=== PATIENT | male | born 1950 | race Caucasian/White ===

== ENCOUNTER 2019-02-11 17:01 | Emergency (ER) | payer OTHER ==
[~2019-02-11] VITALS: Ht 172.7 cm; Wt 109.5 kg
[2019-02-11 17:53] VITALS: BP 142/80; TEMP 97.3
[2019-02-11] MEDS ORDERED: ULTRAM 50MG TAB50 MG PO (21:34)
[2019-02-11 22:05] VITALS: PULSE 62
== END 2019-02-11 22:05 | disposition home or self-care (01) ==
LOC: COL.ER 17:01
DX: S83.91XA Sprain of unspecified site of right knee, initial encounter (principal); I10 Essential (primary) hypertension; X50.1XXA Overexertion from prolonged static or awkward postures, initial encounter
CPT/HCPCS: J1885; L1846

== ENCOUNTER 2020-05-12 05:53 | Inpatient (IN) | payer OTHER, MEDICARE ==
[~2020-05-12] VITALS: Ht 172.7 cm; Wt 109.6 kg
[~2020-05-12 05:53] MED LIST: ULTRAM 50MG TAB50 MG PO
[2020-05-12 06:41] LABS: BASO % 0.5 % (0.0-2.0); EOS % 0.1 % (0-4.0); HEMATOCRIT 47.1 % (42.0-52.0); HEMOGLOBIN 15.4 g/dl (13.5-18.0); LYMPH # 1.6 (1.2-3.4); LYMPH % 17.9 % (20.0-51.0); MEAN CELL VOLUME 90 fl (80.0-100.0); MEAN CORPUSCULAR HEMOGLOBIN 29 pg (27.0-31.0); MEAN CORPUSCULAR HGB CONC 33 g/dl (33.0-37.0); MEAN PLATELET VOLUME 11.4 fl (7.4-10.4); MONO # 1.2 (0.1-0.6); PLATELET COUNT 159 K/mm3 (130-400); RED BLOOD COUNT 5.23 M/mm3 (4.20-5.60)
[2020-05-12] MEDS ORDERED: PREDNISONE20 MG PO (06:41)
[2020-05-12] MEDS ORDERED: ZITHROMAX 250M250 MG PO (06:42)
[2020-05-12] MEDS ORDERED: LIPITOR20 MG PO (06:43)
[2020-05-12] MEDS ORDERED: PROVENTIL0.09 MG/A1 IH (06:43)
[2020-05-12] MEDS ORDERED: TOPROL XL100 MG PO (06:44)
[2020-05-12] MEDS ORDERED: FLOMAX 0.40.4 MG/CAP PO (06:45)
[2020-05-12] MEDS ORDERED: LASIX 20MG TABL20 MG PO (06:45)
[2020-05-12] MEDS ORDERED: PROTONIX 40MG T40 MG PO (06:45)
[2020-05-12 06:53] LABS: ALANINE AMINOTRANSFERASE 14 U/L (4-49); ALBUMIN 3.6 gm/dL (3.5-5.0); ALKALINE PHOSPHATASE 55 U/L (50-136); ANION GAP 5 mmol/L (7-16); AST,SGOT 23 U/L (15-37); BILIRUBIN,TOTAL 0.8 mg/dL (0.0-1.0); BLOOD UREA NITROGEN 20 mg/dL (9-20); C-REACTIVE PROTEIN 3.9 mg/dL (0.0-0.9); CALCIUM 8.6 mg/dL (8.4-10.2); CARBON DIOXIDE 29 mmol/L (22-30); CHLORIDE 101 mmol/L (98-107); CREATININE, serum 0.85 (0.66-1.25); GLUCOSE 98 mg/dL (74-106); LIPASE 76 U/L (23-300); POTASSIUM 3.7 mmol/L (3.4-5.0); SODIUM 135 mmol/L (137-145); TOTAL PROTEIN 6.5 gm/dL (6.4-8.2)
[2020-05-12 06:56] LABS: COLLECTION METHOD CLEAN CATCH
[2020-05-12 07:01] LABS: INR 1.1 (0.8-3.0); PROTHROMBIN TIME 12.2 SECONDS (9.7-12.8)
[2020-05-12 07:01] LABS: MUCOUS Present /lpf; PH 5 (5-8); SQUAMOUS EPITHELIAL 0-2 /hpf; URINE APPEARANCE Clear; URINE BACTERIA None Seen /hpf; URINE BILIRUBIN Negative (NEGATIVE); URINE BLOOD 1+ (NEGATIVE); URINE COLOR Yellow; URINE GLUCOSE Negative (NEGATIVE); URINE KETONE Negative (NEGATIVE); URINE LEUKOCYTE ESTERASE Negative (NEGATIVE); URINE NITRATE Negative (NEGATIVE); URINE PROTEIN(semi-quant) 1+ (NEGATIVE); URINE RBC 0-2 /hpf; URINE UROBILINOGEN >=4.0 mg/dL (NEGATIVE)
[2020-05-12 07:03] LABS: PARTIAL THROMBOPLASTIN TIME 25.4 SECONDS (26.0-37.0); TROPONIN-I < 0.012 ng/mL (0.000-0.035)
[2020-05-12 07:23] LABS: ARTERIAL BLD GAS O2 SATURATION 96.2 % (92-100); ARTERIAL BLD GAS TCO2 CT 29.9; ARTERIAL BLOOD GAS BASE EXCESS 4.9 (-2-2); ARTERIAL BLOOD GAS HCO3 28.7 meq/L (22-26); ARTERIAL BLOOD GAS PCO2 39.4 mmHg (35-45); ARTERIAL BLOOD GAS PO2 75.4 mmHg (80-100); ARTERIAL BLOOD GAS pH 7.48 (7.35-7.45)
[2020-05-12 10:12] VITALS: BP 107/62; PULSE 53; TEMP 98.4
[2020-05-12] MEDS ORDERED: B-121000 MCG PO (10:35)
[2020-05-12] MEDS ORDERED: ASPIRIN 32325 MG/TAB PO (10:36)
--- NOTE | 2020-05-12 10:54 | NUR ---
PATIENT REPORTS HE IS FEELING WELL NOW WITH THE OXYGEN. HE IS TALKATIVE BUT DOES GET TO COUGHING WITH THIS. DENIES PAIN. NO SOB WHILE AT REST
[2020-05-12 12:45] VITALS: BP 106/61; PULSE 57; TEMP 98
[2020-05-12 16:09] VITALS: BP 115/63; PULSE 58; TEMP 98.3
--- NOTE | 2020-05-12 16:19 | NUR ---
PATIENT HAS A NONPRODUCTIVE COUGH THIS HAS WORSENED SINCE BREATHING TREATMENT. PRN COUGH MEDICATIONS GIVEN
[2020-05-12 20:04] VITALS: BP 132/65; PULSE 109; TEMP 98
[2020-05-12 23:59] VITALS: BP 121/55; PULSE 61; TEMP 97.5
[2020-05-13 04:24] VITALS: BP 122/54; PULSE 61; TEMP 98.7
[2020-05-13 06:21] LABS: BASO % 0.1 % (0.0-2.0); EOS % 0.1 % (0-4.0); GRAN # 5.3 (1.4-6.5); GRAN % 63.5 % (42.2-75.2); HEMATOCRIT 43.5 % (42.0-52.0); HEMOGLOBIN 14.1 g/dl (13.5-18.0); LYMPH % 24.5 % (20.0-51.0); MEAN CELL VOLUME 90 fl (80.0-100.0); MEAN CORPUSCULAR HEMOGLOBIN 29 pg (27.0-31.0); MEAN CORPUSCULAR HGB CONC 32 g/dl (33.0-37.0); MEAN PLATELET VOLUME 11.3 fl (7.4-10.4); MONO % 11.6 % (1.7-9.3); PLATELET COUNT 150 K/mm3 (130-400); RED BLOOD COUNT 4.85 M/mm3 (4.20-5.60)
[2020-05-13 06:31] LABS: CALCIUM 8.3 mg/dL (8.4-10.2); CREATININE, serum 0.79 (0.66-1.25); POTASSIUM 3.6 mmol/L (3.4-5.0)
[2020-05-13 09:18] VITALS: BP 143/78; PULSE 68; TEMP 98.2
--- NOTE | 2020-05-13 09:20 | NUR ---
Pt awake and alert sitting in the recliner upon entry. No C/O pain at this time. Shift assessments complete, left Pt sitting in the recliner, call light in reach.
--- NOTE | 2020-05-13 09:52 | NUR ---
The patient is positive for COVID. SW contacted the patient's room phone to discuss discharge plan. The patient lives in [place] with his , Susan (ph#[phone]). He reports independence with ADLs and does not have any DME. He states that he has an old oxygen concentrator in storage that he got from [place], but does not use anymore. The patient's PCP is Dr. Germán Thompson and he receives his medications from [facility]. He reports no difficulties obtaining his meds. The patient does not have a DPOA-HC completed. The patient plans to return back home with his upon discharge. SW then contacted and reviewed the d/c plan with the patient's , Susan. Susan reports no concerns with the patient returning back home upon discharge. He is currently on 3 liters of oxygen. SW to continue to follow.
[2020-05-13 12:10] VITALS: BP 113/61; PULSE 59; TEMP 98.5
[2020-05-13 16:00] VITALS: BP 112/64; PULSE 75; TEMP 98
--- NOTE | 2020-05-13 18:43 | NUR ---
Pt resting in the room today, has been sitting in the recliner most of the day, Currently on 2 LPM O2, No C/O pain throughout the day. VS have remqined stable
[2020-05-13 19:38] VITALS: BP 99/56; PULSE 50; TEMP 97.3
--- NOTE | 2020-05-13 23:56 | NUR ---
patient alert and oriented this evening, denied any pain, diarrhea, or nausea. on 2L of O2 at 97%. 1+ edema on BLE. no concern or question at this time. call light within reach. sleeping in bed at this time.
[2020-05-14] VITALS (8 sets, daily range): BP systolic 100–157; BP diastolic 50–70; PULSE 46–88; TEMP 97.2–101.8
--- NOTE | 2020-05-14 08:55 | NUR ---
Pt awake and alert upon entry, walking in the room, no C/O pain at this time. Shift assessments complete, left Pt sitting in the recliner, call light in reach.
[2020-05-14 08:59] LABS: ALBUMIN 3.4 gm/dL (3.5-5.0); BILIRUBIN,TOTAL 0.7 mg/dL (0.0-1.0); CALCIUM 8.6 mg/dL (8.4-10.2); CREATININE, serum 0.81 (0.66-1.25); POTASSIUM 3.5 mmol/L (3.4-5.0); TOTAL PROTEIN 6.4 gm/dL (6.4-8.2)
--- NOTE | 2020-05-14 20:30 | NUR ---
Patient assessed at this time. Alert and oriented x 4, and able to make needs known. Denies having pain and discomfort at this time. Peripheral INT to left hand flushed. Site without redness, warmth, swelling, and pain. Denies having SOB and dyspnea. On oxygen at 1 L/min via NC. LS CTA in upper lobes. Diminished in lower. Respirations even and unlabored. HRR. Telemetry in place: sinus viet. Capillary refill less than 3 seconds. Non-tenting skin turgor. BSAx4. Abdomen soft and non-tender. 2+ edema BLE. Voices no questions, needs, or concerns at this time. Resting in recliner with call light within reach.
[2020-05-15 03:03] VITALS: BP 110/61; PULSE 49; TEMP 97.3
--- NOTE | 2020-05-15 05:56 | NUR ---
Patient continues on oxygen at 1 L/min via NC. Denies having SOB and dsypnea. Denies having pain and discomfort. Given PRN cough medicine this morning as requested. Voices no further questions, needs, or concerns at this time. Resting in bed with call light within reach. Continues on Droplet/Contact precautions per protocol.
[2020-05-15 07:34] LABS: BASO % 0.2 % (0.0-2.0); EOS % 0.5 % (0-4.0); GRAN % 58.5 % (42.2-75.2); HEMATOCRIT 45.2 % (42.0-52.0); HEMOGLOBIN 14.9 g/dl (13.5-18.0); LYMPH # 2.6 (1.2-3.4); LYMPH % 30.5 % (20.0-51.0); MEAN CELL VOLUME 90 fl (80.0-100.0); MEAN CORPUSCULAR HEMOGLOBIN 30 pg (27.0-31.0); MEAN CORPUSCULAR HGB CONC 33 g/dl (33.0-37.0); MONO # 0.8 (0.1-0.6); MONO % 9.9 % (1.7-9.3); PLATELET COUNT 191 K/mm3 (130-400); RED BLOOD COUNT 5.04 M/mm3 (4.20-5.60); REDCELL DISTRIBUTION WIDTH-CV 13.1 % (11.5-14.5)
[2020-05-15 07:43] LABS: CALCIUM 8.5 mg/dL (8.4-10.2); CREATININE, serum 0.67 (0.66-1.25); POTASSIUM 3.8 mmol/L (3.4-5.0)
[2020-05-15 08:00] VITALS: BP 106/58; PULSE 59; TEMP 97.5
--- NOTE | 2020-05-15 09:40 | NUR ---
Pt awake upon entry, sitting in the recliner. No C\O pain at this time. Shift assessments complete, left Pt call light in reach, bed in lowest position.
--- NOTE | 2020-05-15 10:16 | NUR ---
An exercise oximetry was ordered. The patient did not qualify for oxygen. The patient is to tentatively d/c today. SW contacted the patient and read the IM form outloud to him. The patient verbalized understanding and gave SW approval to sign the form on his behalf. No additional needs at this time.
[2020-05-15] MEDS ORDERED: DOXYCYCLINE 10100 MG PO (11:39)
[2020-05-15] MEDS ORDERED: DECADRON6 MG PO (11:40)
[2020-05-15] MEDS ORDERED: ROBITUSSIN DM 105 ML PO (12:00)
[2020-05-15 12:55] VITALS: BP 105/58; PULSE 84; TEMP 98.4
--- NOTE | 2020-05-15 16:30 | NUR ---
Pt discharged to home, discussed discharge information with Pt. Escorted to entrance. Pt left with spouse via private transportation.
== END 2020-05-15 16:30 | disposition home or self-care (01) | DRG 177 ==
LOC: COL.ER 05:53 → MEDICAL 08:05 → PEDS 08:05
PROVIDERS: Emergency Medicine; ADMIT Hospitalist
PROC: XW033E5 Introduction of Remdesivir Anti-infective into Peripheral Vein, Percutaneous Approach, New Technology Group 5 (ICD-10-PCS; principal; 2020-05-12)
DX: U07.1 COVID-19 (principal); J96.01 Acute respiratory failure with hypoxia; J12.81 Pneumonia due to SARS-associated coronavirus; I10 Essential (primary) hypertension; K21.9 Gastro-esophageal reflux disease without esophagitis; N40.0 Benign prostatic hyperplasia without lower urinary tract symptoms; F17.210 Nicotine dependence, cigarettes, uncomplicated; E53.8 Deficiency of other specified B group vitamins; G47.33 Obstructive sleep apnea (adult) (pediatric); Z79.82 Long term (current) use of aspirin; Z88.6 Allergy status to analgesic agent
CPT/HCPCS: 99222-AI; 99232-AI; J0696; J1100; J1650; J1956; J7050; Q9967

== ENCOUNTER → 2020-07-29 | Outpatient (CLI) | payer OTHER ==
[~2020-07-29] MED LIST changes: +ASPIRIN 32325 MG/TAB PO; +B-121000 MCG PO; +DECADRON6 MG PO; +DOXYCYCLINE 10100 MG PO; +EFFIENT10 MG PO; +FLOMAX 0.40.4 MG/CAP PO; +IMDUR 60MG60 MG/TAB PO; +LASIX 20MG TABL20 MG PO; +LIPITOR 80MG80 MG PO; +LIPITOR20 MG PO; +NITROSTAT0.4 MG/TAB SL; +PREDNISONE20 MG PO; +PROTONIX 40MG T40 MG PO; +PROVENTIL0.09 MG/A1 IH; +ROBITUSSIN DM 105 ML PO; +TOPROL XL100 MG PO; +ZITHROMAX 250M250 MG PO
== END ==
LOC: COL.RAD 11:03
DX: Z01.812 Encounter for preprocedural laboratory examination (principal); I72.3 Aneurysm of iliac artery; I71.4 Abdominal aortic aneurysm, without rupture; I73.9 Peripheral vascular disease, unspecified; K57.30 Diverticulosis of large intestine without perforation or abscess without bleeding; M79.89 Other specified soft tissue disorders; Z95.828 Presence of other vascular implants and grafts
CPT/HCPCS: Q9967

== ENCOUNTER 2020-10-18 08:03 | Day surgery (SDC) | payer OTHER ==
[~2020-10-18] VITALS: Ht 172.7 cm; Wt 107.5 kg
[2020-10-18] VITALS (14 sets, daily range): BP systolic 118–175; BP diastolic 46–79; PULSE 48–63; TEMP 97.4–98.4
[~2020-10-18 08:03] MED LIST changes: -EFFIENT10 MG PO; -IMDUR 60MG60 MG/TAB PO; -LIPITOR 80MG80 MG PO; -NITROSTAT0.4 MG/TAB SL
[2020-10-18 08:54] LABS: HEMATOCRIT 49.7 % (42.0-52.0); HEMOGLOBIN 16.2 g/dl (13.5-18.0); MEAN CELL VOLUME 89 fl (80.0-100.0); MEAN CORPUSCULAR HEMOGLOBIN 29 pg (27.0-31.0); MEAN CORPUSCULAR HGB CONC 33 g/dl (33.0-37.0); MEAN PLATELET VOLUME 10.3 fl (7.4-10.4); PLATELET COUNT 168 K/mm3 (130-400); RED BLOOD COUNT 5.59 M/mm3 (4.20-5.60); REDCELL DISTRIBUTION WIDTH-CV 13.1 % (11.5-14.5)
[2020-10-18 09:04] LABS: CALCIUM 8.8 mg/dL (8.4-10.2); CREATININE, serum 0.74 (0.66-1.25); POTASSIUM 4.2 mmol/L (3.4-5.0)
[2020-10-18 09:13] LABS: INR 1.1 (0.8-3.0); PROTHROMBIN TIME 12.5 SECONDS (9.7-12.8)
[2020-10-18 09:16] LABS: PARTIAL THROMBOPLASTIN TIME 27.9 SECONDS (26.0-37.0)
--- NOTE | 2020-10-18 10:38 | NUR ---
SEE [facility] FOR ALL MEDICATION ADMINISTRATION TIMES, INTRA AND POST SEDATION ASSESSMENTS.
--- NOTE | 2020-10-18 12:30 | NUR ---
PT C/O SOB. O2 IS 96% HOWEVER, UPON MOVEMENT PT IS VERY DYSPNIC. CONTACTED PHYSICIAN DR. WADE WHO ORDERS A STAT EKG, CHEST XRAY, WELL BUMEX 1MG AND NITRO Q5M PRN FOR CHEST TIGHTNESS. WILL CONTINUE TO MONITOR.
--- NOTE | 2020-10-18 12:45 | NUR ---
PT REMAINS DYSPNIC, CHEST TIGHTNESS, NO CHEST PAIN AT THIS TIME.
--- NOTE | 2020-10-18 13:00 | NUR ---
PT REMAINS DYSPNIC, CHEST TIGHTNESS WITH BREATHING, NOT RELATED TO HEART PAIN, BUT BREATHING. WILL CONTINUE TO MONITOR.
--- NOTE | 2020-10-18 13:30 | NUR ---
PT REMAINS DYSPNIC WITH TIGHTENING D/T SOB. PT IS ANXIOUS THAT HE IS GETTING WORSE AND SHOULD HAVE BEEN TRANSFERRED. WILL DISCUSS WITH DR. WADE.
--- NOTE | 2020-10-18 13:45 | NUR ---
PT REMAINS DYSPNIC.
--- NOTE | 2020-10-18 14:00 | NUR ---
PT REMAINS DYSPNIC AND ANXIOUS.
--- NOTE | 2020-10-18 15:32 | NUR ---
CONTACTED DR. WADE AGAIN REGARDING PT'S DYSPNEA, HE STATES HE WILL COME ASSESS THE PATIENT SOON HE CAN.
--- NOTE | 2020-10-18 18:53 | NUR ---
PT STATES HE IS FEELING MUCH BETTER THIS EVENING, DOES SAY WHEN HE IS FALLING ASLEEP HE FEELS THOUGH HIS SOB STARTS AGAIN. THERE ARE NO OTHER CONCERNS. REPORT WAS GIVEN TO DAISY LEES.
--- NOTE | 2020-10-18 19:27 | NUR ---
PATIENT RESTING IN BED A+0X4. DENIES CHEST PAIN PAIN AT THIS TIME, SOB NOTED ON 2L NC SAT 94%. TR BAND REMOVED, NO BLEEDING NOTED. VSS. SPOUSE AT BEDSIDE. CALL LIGHT IN REACH. TAKES MED WHOLE WITH WATER. WILL CONTINUE TO MONITOR.
[2020-10-19 00:04] VITALS: BP 132/61; PULSE 52; TEMP 97.5
[2020-10-19 04:02] VITALS: BP 134/63; PULSE 53; TEMP 97.9
[2020-10-19 08:08] VITALS: BP 141/67; PULSE 55; TEMP 98.1
--- NOTE | 2020-10-19 09:30 | NUR ---
PT AWAKE AND SITTING UP AT BEDSIDE. PT STATES HE HAS HAD BOUTS OF DYSPNEA WITH CHEST PAIN. TALKED WITH DR. LOPEZ.
[2020-10-19 11:50] VITALS: BP 141/64; PULSE 52; TEMP 97.7
[2020-10-19 12:31] LABS: BASO # 0.1 (0.0-0.2); BASO % 0.6 % (0.0-2.0); EOS # 0.2 (0.0-0.7); EOS % 2.3 % (0-4.0); GRAN # 7.4 (1.4-6.5); GRAN % 72.5 % (42.2-75.2); HEMATOCRIT 50.6 % (42.0-52.0); HEMOGLOBIN 16.6 g/dl (13.5-18.0); LYMPH # 1.7 (1.2-3.4); LYMPH % 16.4 % (20.0-51.0); MEAN CELL VOLUME 88 fl (80.0-100.0); MEAN CORPUSCULAR HEMOGLOBIN 29 pg (27.0-31.0); MEAN CORPUSCULAR HGB CONC 33 g/dl (33.0-37.0); MEAN PLATELET VOLUME 10.5 fl (7.4-10.4); MONO # 0.8 (0.1-0.6); MONO % 7.9 % (1.7-9.3); PLATELET COUNT 181 K/mm3 (130-400); RED BLOOD COUNT 5.76 M/mm3 (4.20-5.60)
[2020-10-19 12:40] LABS: BILIRUBIN,TOTAL 1.1 mg/dL (0.0-1.0); CALCIUM 9.2 mg/dL (8.4-10.2); CREATININE, serum 0.73 (0.66-1.25); MAGNESIUM 1.5 mg/dL (1.6-2.3); POTASSIUM 4.1 mmol/L (3.4-5.0); TOTAL PROTEIN 7.1 gm/dL (6.4-8.2)
[2020-10-19 12:51] LABS: TROPONIN-I 0.016 ng/mL (0.000-0.035)
[2020-10-19] MEDS ORDERED: NITROSTAT0.4 MG/TAB SL (13:28)
[2020-10-19] MEDS ORDERED: LIPITOR 80MG80 MG PO (13:28)
[2020-10-19] MEDS ORDERED: IMDUR 60MG60 MG/TAB PO (13:28)
[2020-10-19] MEDS ORDERED: EFFIENT10 MG PO (13:28)
== END 2020-10-19 17:35 | disposition home or self-care (01) ==
LOC: COL.CAR 08:03 → MEDICAL 12:35 → COL.CAR 10-19 17:35
PROVIDERS: Internal Medicine Adult Congenital Heart Disease; Internal Medicine Cardiovascular Disease
DX: I25.10 Atherosclerotic heart disease of native coronary artery without angina pectoris (principal); I25.84 Coronary atherosclerosis due to calcified coronary lesion; I10 Essential (primary) hypertension; E83.42 Hypomagnesemia; R00.1 Bradycardia, unspecified; I73.9 Peripheral vascular disease, unspecified; R06.00 Dyspnea, unspecified; T45.525A Adverse effect of antithrombotic drugs, initial encounter; Y92.239 Unspecified place in hospital as the place of occurrence of the external cause; Z79.899 Other long term (current) drug therapy; Z79.82 Long term (current) use of aspirin
CPT/HCPCS: OP; C1725; C1769; C1887; J1644; J2250; J3010; J3475; J7030; J8540

== ENCOUNTER 2020-11-07 21:20 | Emergency (ER) | payer OTHER ==
[~2020-11-07] VITALS: Ht 172.7 cm; Wt 109.1 kg
[~2020-11-07 21:20] MED LIST changes: +EFFIENT10 MG PO; +IMDUR 60MG60 MG/TAB PO; +LIPITOR 80MG80 MG PO; +NITROSTAT0.4 MG/TAB SL
[2020-11-07 21:26] VITALS: TEMP 97
[2020-11-07 21:57] LABS: BASO # 0.1 (0.0-0.2); EOS # 0.6 (0.0-0.7); EOS % 6.5 % (0-4.0); GRAN # 4.7 (1.4-6.5); GRAN % 52.3 % (42.2-75.2); HEMATOCRIT 44.5 % (42.0-52.0); HEMOGLOBIN 14.3 g/dl (13.5-18.0); LYMPH # 2.8 (1.2-3.4); LYMPH % 30.6 % (20.0-51.0); MEAN CELL VOLUME 90 fl (80.0-100.0); MEAN CORPUSCULAR HEMOGLOBIN 29 pg (27.0-31.0); MEAN CORPUSCULAR HGB CONC 32 g/dl (33.0-37.0); MEAN PLATELET VOLUME 10.8 fl (7.4-10.4); MONO # 0.9 (0.1-0.6); MONO % 9.4 % (1.7-9.3); PLATELET COUNT 162 K/mm3 (130-400); RED BLOOD COUNT 4.92 M/mm3 (4.20-5.60); REDCELL DISTRIBUTION WIDTH-CV 13.2 % (11.5-14.5)
[2020-11-07 22:05] LABS: INR 1.2 (0.8-3.0); PROTHROMBIN TIME 12.8 SECONDS (9.7-12.8)
[2020-11-07 22:07] LABS: PARTIAL THROMBOPLASTIN TIME 28.5 SECONDS (26.0-37.0)
[2020-11-07 22:10] LABS: ALANINE AMINOTRANSFERASE 11 U/L (4-49); ALBUMIN 3.5 gm/dL (3.5-5.0); ALKALINE PHOSPHATASE 69 U/L (50-136); ANION GAP 3 mmol/L (7-16); AST,SGOT 20 U/L (15-37); BILIRUBIN,TOTAL 0.4 mg/dL (0.0-1.0); BLOOD UREA NITROGEN 16 mg/dL (9-20); CALCIUM 8.8 mg/dL (8.4-10.2); CARBON DIOXIDE 30 mmol/L (22-30); CHLORIDE 105 mmol/L (98-107); GLUCOSE 123 mg/dL (74-106); POTASSIUM 3.7 mmol/L (3.4-5.0); SODIUM 137 mmol/L (137-145); TOTAL PROTEIN 6.1 gm/dL (6.4-8.2)
[2020-11-07 22:21] LABS: TROPONIN-I < 0.012 ng/mL (0.000-0.035)
[2020-11-08 01:30] VITALS: BP 150/65; PULSE 60
== END 2020-11-08 01:30 | disposition home or self-care (01) ==
LOC: COL.ER 21:20
PROVIDERS: Emergency Medicine
DX: I25.119 Atherosclerotic heart disease of native coronary artery with unspecified angina pectoris (principal); Z98.61 Coronary angioplasty status; Z88.8 Allergy status to other drugs, medicaments and biological substances; Z79.899 Other long term (current) drug therapy; Z79.82 Long term (current) use of aspirin; Z20.822 Contact with and (suspected) exposure to COVID-19
CPT/HCPCS: J7030

== ENCOUNTER 2021-10-16 10:54 | Emergency (ER) | payer OTHER ==
[~2021-10-16] VITALS: Ht 172.7 cm; Wt 102.7 kg
[~2021-10-16 10:54] MED LIST changes: -ASPIRIN 32325 MG/TAB PO; +ASPIRIN 81M81 MG/TA2 PO
[2021-10-16 11:16] VITALS: BP 123/84; TEMP 97.8
[2021-10-16 12:00] LABS: BASO # 0.1 K/mm3 (0.0-0.2); BASO % 1.1 % (0.0-2.0); EOS # 0.4 K/mm3 (0.0-0.7); EOS % 4.2 % (0.0-4.0); GRAN # 6.2 K/mm3 (1.4-6.5); GRAN % 60.9 % (42.2-75.2); HEMATOCRIT 42.6 % (42.0-52.0); HEMOGLOBIN 14.2 g/dl (13.5-18.0); LYMPH # 2.4 K/mm3 (1.2-3.4); LYMPH % 23.3 % (20.0-51.0); MEAN CELL VOLUME 90 fl (80.0-100.0); MEAN CORPUSCULAR HEMOGLOBIN 30 pg (27-31); MEAN CORPUSCULAR HGB CONC 33 g/dl (33.0-37.0); MEAN PLATELET VOLUME 10.9 fl (7.4-10.4); MONO % 10.2 % (1.7-9.3); PLATELET COUNT 167 K/mm3 (130-400); RED BLOOD COUNT 4.75 M/mm3 (4.20-5.60); REDCELL DISTRIBUTION WIDTH-CV 13.7 % (11.5-14.5)
[2021-10-16 12:05] LABS: INR 1.2 (0.8-3.0); PROTHROMBIN TIME 13.6 SECONDS (9.7-12.8)
[2021-10-16 12:20] LABS: ALBUMIN 3.3 gm/dL (3.4-4.8); BILIRUBIN,TOTAL 1.1 mg/dL (0.2-1.2); CALCIUM 8.5 mg/dL (8.4-10.2); CREATININE, serum 0.83 mg/dL (0.72-1.25); POTASSIUM 3.7 mmol/L (3.5-4.5); TOTAL PROTEIN 6.3 gm/dL (6.2-8.1)
[2021-10-16 14:43] LABS: HEMOGLOBIN 13.6 g/dl (13.5-18.0)
[2021-10-16 16:37] VITALS: PULSE 52
[2021-10-17] MEDS ORDERED: DEMADEX10 MG PO (14:04)
== END 2021-10-16 16:41 | disposition home or self-care (01) ==
LOC: COL.ER 10:54
PROVIDERS: Physician Assistant
DX: K92.1 Melena (principal); I95.9 Hypotension, unspecified; R00.1 Bradycardia, unspecified; F17.200 Nicotine dependence, unspecified, uncomplicated; Z95.828 Presence of other vascular implants and grafts; Z79.02 Long term (current) use of antithrombotics/antiplatelets; Z79.82 Long term (current) use of aspirin
CPT/HCPCS: C9113; J2405; J7030; Q9967

== ENCOUNTER 2021-10-17 13:02 | Day surgery (SDC) | payer OTHER ==
[~2021-10-17] VITALS: Ht 172.7 cm; Wt 102.5 kg
[2021-10-17 13:45] VITALS: BP 105/72; PULSE 61; TEMP 97.9
[2021-10-17] MEDS ORDERED: DEMADEX10 MG PO (14:04)
[2021-10-17 14:45] VITALS: BP 121/72; PULSE 61; TEMP 97
--- NOTE | 2021-10-17 14:56 | NUR ---
9235 - PT arrived from procedure, drowsy but oriented. Assisted with ambulation from cart to chair 2:1. Monitors applied and VSS. Warm blanekts provided. NOn-slip socks remain on. PT oriented to room and call felton, within reach. PT served hot coffee w/ cream and sugar, ice water and a warm muffin per request. Will monitor per intervals. Susan remains present.
[2021-10-17 15:00] VITALS: BP 110/68; PULSE 55
--- NOTE | 2021-10-17 15:05 | NUR ---
1500 - VSS. PT has finished her snack and drink; and expressed desire to be discharged. PT denies nausea and pain. Call felton remains within reach.
[2021-10-17 15:15] VITALS: BP 114/64; PULSE 55
--- NOTE | 2021-10-17 15:18 | NUR ---
1515 - VSS. [place] instructions and educational material reviewed with the PT who verbalized understanding and signed the related paperwork. IV discontinued. Catheter tip intact. Pressure bandage applied; no redness or swelling noted. PT denied needing RN assistance changing into personal clothes, however, call felton remains within reach if needed. Awaiting DR to speak with PT.
--- NOTE | 2021-10-17 15:35 | NUR ---
PATIENT DISMISSED TO HOME DRIVEN BY SPOUSE AFTER DR. JUAREZ HAS TALKED WITH THE PATIENT AND ALL QUESTIONS ANSWERED. TAKEN TO VEHICLE PER WHEELCHAIR AND ASSISTED INTO VEHICLE WITH INSTRUCTIONS IN HAND.
== END 2021-10-17 15:35 | disposition home or self-care (01) ==
LOC: SDCO 13:02
DX: K57.30 Diverticulosis of large intestine without perforation or abscess without bleeding (principal); K92.1 Melena; K64.2 Third degree hemorrhoids; K44.9 Diaphragmatic hernia without obstruction or gangrene; F17.210 Nicotine dependence, cigarettes, uncomplicated
CPT/HCPCS: J2704; J7120

== ENCOUNTER 2024-01-09 09:57 | Emergency (ER) | payer OTHER ==
[~2024-01-09] VITALS: Ht 172.7 cm; Wt 95.9 kg
[~2024-01-09 09:57] MED LIST changes: +DEMADEX10 MG PO
[2024-01-09 10:11] VITALS: TEMP 97.6
[2024-01-09] MEDS ORDERED: NS 1,000 ML IV ONE (12:30)
[2024-01-09 12:58] LABS: BASO % 0.2 % (0.0-2.0); EOS % 0.3 % (0.0-4.0); GRAN # 10.3 K/mm3 (1.4-6.5); GRAN % 78.2 % (42.2-75.2); HEMATOCRIT 47.3 % (42.0-52.0); HEMOGLOBIN 15.7 g/dl (13.5-18.0); LYMPH % 15.2 % (20.0-51.0); MEAN CELL VOLUME 91 fl (80.0-100.0); MEAN CORPUSCULAR HEMOGLOBIN 30 pg (27-31); MEAN CORPUSCULAR HGB CONC 33 g/dl (33.0-37.0); MEAN PLATELET VOLUME 10.8 fl (7.4-10.4); MONO # 0.7 K/mm3 (0.1-0.6); MONO % 5.6 % (1.7-9.3); PLATELET COUNT 158 K/mm3 (130-400); RED BLOOD COUNT 5.21 M/mm3 (4.20-5.60); REDCELL DISTRIBUTION WIDTH-CV 13.8 % (11.5-14.5)
[2024-01-09 13:14] LABS: ALBUMIN 3.2 g/dL (3.4-4.8); BILIRUBIN,TOTAL 0.6 mg/dL (0.2-1.2); CALCIUM 8.7 mg/dL (8.4-10.2); CREATININE, serum 0.92 mg/dL (0.72-1.25); POTASSIUM 4.3 mEq/L (3.5-4.5); TOTAL PROTEIN 6.1 g/dl (6.2-8.1)
[2024-01-09] MEDS ORDERED: LEVAQUIN 5500 MG/TA1 PO (13:57)
[2024-01-09] MEDS ORDERED: levoFLOXacin 500 MG TAB PO ONE (14:00)
[2024-01-09 14:05] VITALS: BP 125/81; PULSE 54
== END 2024-01-09 14:08 | disposition home or self-care (01) ==
LOC: COL.ER 09:57
PROVIDERS: Personal Emergency Response Attendant
DX: J42 Unspecified chronic bronchitis (principal)
CPT/HCPCS: J7030